=== PATIENT | female | born 2000 | race Caucasian/White ===

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

== ENCOUNTER 2020-04-07 09:26 | Emergency (ER) | payer SELFPAY ==
[~2020-04-07] VITALS: Ht 167.6 cm; Wt 80.5 kg
[~2020-04-07 09:26] MED LIST changes: +CEPH500T PO; +MAGN296S68 PO; +ONDA4TAB10 SL
[2020-04-07 09:33] VITALS: BP 116/77
[2020-04-07 10:31] LABS: BILIRUBIN,URINE SMALL (NEG); CLARITY,URINE CLOUDY; COLOR,URINE YELLOW; NITRITE,URINE NEGATIVE (NEG); PROTEIN,URINE NEGATIVE (NEG-TRACE)
[2020-04-07 10:38] LABS: BACTERIA,URINE MODERATE /HPF (0-FEW); WBC,URINE >40 /HPF (0-4)
[2020-04-07 10:39] LABS: RBC,URINE OCC /HPF (0-2)
[2020-04-07] MEDS ORDERED: METR500T PO (11:25)
[2020-04-07] MEDS ORDERED: CEPH-264 PO (11:25)
--- NOTE | 2020-04-07 11:25 | PHYS DOC ---
Past Medical History Past Medical History: IBS, Other Additional Past Medical Histor: Enlarged spleen-not checked recently. Past Surgical History: No Surgical History Smoking Status: Never Smoker Alcohol Use: None Drug Use: None General Adult EDM: Chief Complaint: SEXUALLY TRANSMITTED DISEASE HPI: HPI: Patient is a 19 year old [f__sex] who presents with [] Review of Systems: Review of Systems: Constitutional: Denies fever or chills. [] Eyes: Denies change in visual acuity. [] HENT: Denies nasal congestion or sore throat. [] Respiratory: Denies cough or shortness of breath. [] Cardiovascular: Denies chest pain or edema. [] GI: Denies abdominal pain, nausea, vomiting, bloody stools or diarrhea. [] : Denies dysuria. [] Musculoskeletal: Denies back pain or joint pain. [] Integument: Denies rash. [] Neurologic: Denies headache, focal weakness or sensory changes. [] Endocrine: Denies polyuria or polydipsia. [] Lymphatic: Denies swollen glands. [] Psychiatric: Denies depression or anxiety. [] Heart Score: Risk Factors: Risk Factors: DM, Current or recent (<one month) smoker, HTN, HLP, family history of CAD, obesity. Risk Scores: Score 0 - 3: 2.5% MACE over next 6 weeks - Discharge Home Score 4 - 6: 20.3% MACE over next 6 weeks - Admit for Clinical Observation Score 7 - 10: 72.7% MACE over next 6 weeks - Early Invasive Strategies Allergies: Allergies: Allergies Coded Allergies Type Severity Reaction Last Updated Verified No Known Drug Allergies 07/21/17 No Physical Exam: PE: Constitutional: Well developed, well nourished, no acute distress, non-toxic appearance. [] HENT: Normocephalic, atraumatic, bilateral external ears normal, oropharynx moist, no oral exudates, nose normal. [] Eyes: PERRLA, EOMI, conjunctiva normal, no discharge. [] Neck: Normal range of motion, no tenderness, supple, no stridor. [] Cardiovascular:Heart rate regular rhythm, no murmur [] Lungs & Thorax: Bilateral breath sounds clear to auscultation [] Abdomen: Bowel sounds normal, soft, no tenderness, no masses, no pulsatile masses. [] Skin: Warm, dry, no erythema, no rash. [] Back: No tenderness, no CVA tenderness. [] Extremities: No tenderness, no cyanosis, no clubbing, ROM intact, no edema. [] Neurologic: Alert and oriented X 3, normal motor function, normal sensory function, no focal deficits noted. [] Psychologic: Affect normal, judgement normal, mood normal. [] Current Patient Data: Labs: Laboratory Tests Test 04/07/20 10:19 04/07/20 10:22 Urine Collection Type Unknown Urine Color Yellow Urine Clarity Cloudy Urine pH 6.0 (<5.0-8.0) Urine Specific Addison 1.025 (1.000-1.030) Urine Protein Negative mg/dL (NEG-TRACE) Urine Glucose (UA) Negative mg/dL (NEG) Urine Ketones (Stick) Negative mg/dL (NEG) Urine Blood Negative (NEG) Urine Nitrite Negative (NEG) Urine Bilirubin Small (NEG) Urine Urobilinogen Dipstick 1.0 mg/dL (0.2 mg/dL) Urine Leukocyte Esterase Large (NEG) Urine RBC Occ /HPF (0-2) Urine WBC >40 /HPF (0-4) Urine Squamous Epithelial Cells Mod /LPF Urine Bacteria Moderate /HPF (0-FEW) Urine Mucus Slight /LPF POC Urine HCG, Qualitative Hcg negative (Negative) Microbiology 04/07/20 Wet Prep - Final, Complete Vital Signs: Vital Signs Date Time Temp Pulse Resp B/P (MAP) Pulse Ox O2 Delivery O2 Flow Rate FiO2 04/07/20 09:33 97.6 86 15 116/77 (90) 98 Room Air 97.6 EKG: EKG: [] Radiology/Procedures: Radiology/Procedures: [] Course & Med Decision Making: Course & Med Decision Making Pertinent Labs and Imaging studies reviewed. (See chart for details) [] Dragon Disclaimer: Dragon Disclaimer: This electronic medical record was generated, in whole or in part, using a voice recognition dictation system. Departure Departure Impression: Primary Impression: Trichomonas vaginitis Additional Impressions: Urinary tract infection Qualified Codes: N30.00 - Acute cystitis without hematuria Concern about sexually transmitted disease in female without diagnosis Disposition: 01 DC HOME SELF CARE/HOMELESS Condition: STABLE Referrals: NO PCP (PCP) SAGE STEVENSON Jr, MD Patient Instructions: Sexually Transmitted Disease, [id number], Trichomoniasis, Urinary Tract Infection, [id number] Scripts Metronidazole (FLAGYL) 500 Mg Tablet 500 MG PO BID for 7 Days, #14 TAB Prov: CARLOTA TADEO DO 04/07/20 Cephalexin (KEFLEX) 500 Mg Capsule 1 CAP PO TID for 7 Days, #21 CAP 0 Refills Prov: CARLOTA TADEO DO 04/07/20 CARLOTA TADEO DO Apr 07, 2020 11:25
[2020-04-07] MEDS ORDERED: cefTRIAXone IM 250 MG VIAL IM ONE (11:30)
[2020-04-07] MEDS ORDERED: AZITHROMYCIN 250 MG TABLET. PO ONE (11:30)
== END 2020-04-07 11:39 | disposition home or self-care (01) ==
LOC: ER 09:26
DX: A59.01 Trichomonal vulvovaginitis (principal); N30.00 Acute cystitis without hematuria
CPT/HCPCS: 81001; 81025; 87086; 87491; 87591; 96372; 99284; J0696; Q0111; 87077

== ENCOUNTER 2020-08-12 14:10 | Emergency (ER) | payer SELFPAY ==
[~2020-08-12] VITALS: Ht 165.1 cm; Wt 80.0 kg
[~2020-08-12 14:10] MED LIST changes: +CEPH-264 PO; +METR500T PO
[2020-08-12 14:15] VITALS: BP 118/79
[2020-08-12 16:10] LABS: BILIRUBIN,URINE NEGATIVE (NEG); CLARITY,URINE CLEAR; COLOR,URINE YELLOW; NITRITE,URINE NEGATIVE (NEG); PH,URINE 6.5 (<5.0-8.0); PROTEIN,URINE NEGATIVE (NEG-TRACE); UROBILINOGEN,URINE 0.2 mg/dL (0.2 mg/dL)
[2020-08-12 16:24] LABS: BACTERIA,URINE MODERATE /HPF (0-FEW)
--- NOTE | 2020-08-12 16:27 | RAD ---
EXAM: 2 VIEW ABDOMEN WITH ONE VIEW CHEST. HISTORY: Abdominal pain and nausea. COMPARISON: 07/21/2017. FINDINGS: A frontal view of the chest and supine/upright views of the abdomen are obtained. There are no confluent infiltrates. There is no pneumothorax or pleural effusion. The heart is not en larged. There is no pneumoperitoneum. There are no distended small bowel loops or significant air-fluid level s. There is gas distally. IMPRESSION: 1. No confluent infiltrates. 2. No evidence of obstruction. Electronically signed by: Evie Hamm MD (08/12/2020 4:24 PM) [facility]
[2020-08-12 16:32] LABS: BASO # 0.1 x10^3/uL (0.0-0.2); BASO % 1 % (0-3); EOS % 1 % (0-3); HEMATOCRIT 42.9 % (36.0-47.0); HEMOGLOBIN 14.5 g/dL (12.0-15.5); LYMPH # 1.7 x10^3/uL (1.0-4.8); LYMPH % 20 % (24-48); MEAN CORPUSCULAR HEMOGLOBIN 32 pg (25-35); MEAN CORPUSCULAR HGB CONC 34 g/dL (31-37); MEAN CORPUSCULAR VOLUME 95 fL (79-100); MONO # 0.5 x10^3/uL (0.0-1.1); MONO % 6 % (0-9); NEUT # 6.4 x10^3/uL (1.8-7.7); NEUT % 74 % (31-73); PLATELET COUNT 176 x10^3/uL (140-400); RED CELL DISTRIBUTION WIDTH 12.6 % (11.5-14.5); WHITE BLOOD COUNT 8.6 x10^3/uL (4.0-11.0)
[2020-08-12 16:39] LABS: CREATININE 0.8 mg/dL (0.6-1.0); GFR 92.4; POTASSIUM 3.8 mmol/L (3.5-5.1)
[2020-08-12 16:44] LABS: ALBUMIN 4.2 g/dL (3.4-5.0); ALBUMIN/GLOBULIN RATIO 1.4 (1.0-1.7); TOTAL BILIRUBIN 0.5 mg/dL (0.2-1.0); TOTAL PROTEIN 7.1 g/dL (6.4-8.2)
--- NOTE | 2020-08-12 17:25 | PHYS DOC ---
Past Medical History Past Medical History: IBS, Other Additional Past Medical Histor: Enlarged spleen-not checked recently. (PATRICK GARCIA CERTIFIED MEDICAL CODER) Past Surgical History: No Surgical History (PATRICK GARCIA CERTIFIED MEDICAL CODER) Smoking Status: Never Smoker Alcohol Use: None Drug Use: None (PATRICK GARCIA APRN) General Adult EDM: Chief Complaint: PELVIC PAIN HPI: HPI: Patient is a 19 year old female who presents with yesterday was seen at [facility] by the [facility] for her abdominal pain. She states that nothing was fine except for some constipation. Patient comes in today because she states that she thinks something is wrong. Patient has a history of IBS and asthma. Patient states she has been having a bowel movement that is normal for her and is not hard to pass. Patient denies fever, back pain, nausea, vomiting, diarrhea, pain, cough, shortness of breath, sexually-transmitted disease concerns, abnormal vaginal discharge or bleeding. She states that she has no burning with urination but feels like she is not frequency or pressure in her lower abdomen. She rates her nonradiating pressure discomfort at a 5 out of 10. (PATRICK GARCIA CERTIFIED MEDICAL CODER) Review of Systems: Review of Systems: Constitutional: Denies fever or chills. [] Eyes: Denies change in visual acuity. [] HENT: Denies nasal congestion or sore throat. [] Respiratory: Denies cough or shortness of breath. [] Cardiovascular: Denies chest pain or edema. [] GI: + abdominal pressure pain, denies nausea, vomiting, bloody stools or diarrhea. [] : Denies dysuria. [] Musculoskeletal: Denies back pain or joint pain. [] Integument: Denies rash. [] Neurologic: Denies headache, focal weakness or sensory changes. [] Endocrine: Denies polyuria or polydipsia. [] Lymphatic: Denies swollen glands. [] Psychiatric: Denies depression or anxiety. [] (PATRICK GARCIA CERTIFIED MEDICAL CODER) Heart Score: C/O Chest Pain: No Risk Factors: Risk Factors: DM, Current or recent (<one month) smoker, HTN, HLP, family history of CAD, obesity. Risk Scores: Score 0 - 3: 2.5% MACE over next 6 weeks - Discharge Home Score 4 - 6: 20.3% MACE over next 6 weeks - Admit for Clinical Observation Score 7 - 10: 72.7% MACE over next 6 weeks - Early Invasive Strategies (PATRICK GARCIA APRN) Allergies: Allergies: Allergies Coded Allergies Type Severity Reaction Last Updated Verified No Known Drug Allergies 07/21/17 No (PATRICK GARCIA APRN) Physical Exam: PE: Constitutional: Well developed, well nourished, no acute distress, non-toxic appearance. [] HENT: Normocephalic, atraumatic, bilateral external ears normal, oropharynx moist, no oral exudates, nose normal. [] Eyes: PERRLA, EOMI, conjunctiva normal, no discharge. [] Neck: Normal range of motion, no tenderness, supple, no stridor. [] Cardiovascular:Heart rate regular rhythm, no murmur [] Lungs & Thorax: Bilateral breath sounds clear to auscultation [] Abdomen: Bowel sounds normal, soft, no tenderness, no masses, no pulsatile masses. [] Skin: Warm, dry, no erythema, no rash. [] Back: No tenderness, no CVA tenderness. [] Extremities: No tenderness, no cyanosis, no clubbing, ROM intact, no edema. [] Neurologic: Alert and oriented X 3, normal motor function, normal sensory function, no focal deficits noted. [] Psychologic: Affect normal, judgement normal, mood normal. Normal physical exam [] (PATRICK GARCIA APRN) Current Patient Data: Labs: Laboratory Tests Test 08/12/20 14:15 08/12/20 14:24 08/12/20 16:15 Urine Collection Type Void Urine Color Yellow Urine Clarity Clear Urine pH 6.5 (<5.0-8.0) Urine Specific Amorita 1.015 (1.000-1.030) Urine Protein Negative mg/dL (NEG-TRACE) Urine Glucose (UA) Negative mg/dL (NEG) Urine Ketones (Stick) Negative mg/dL (NEG) Urine Blood Negative (NEG) Urine Nitrite Negative (NEG) Urine Bilirubin Negative (NEG) Urine Urobilinogen Dipstick 0.2 mg/dL (0.2 mg/dL) Urine Leukocyte Esterase Small (NEG) Urine RBC 1-2 /HPF (0-2) Urine WBC 11-20 /HPF (0-4) Urine Squamous Epithelial Cells Many /LPF Urine Bacteria Moderate /HPF (0-FEW) Urine Mucus Slight /LPF POC Urine HCG, Qualitative Hcg negative (Negative) White Blood Count 8.6 x10^3/uL (4.0-11.0) Red Blood Count 4.50 x10^6/uL (3.50-5.40) Hemoglobin 14.5 g/dL (12.0-15.5) Hematocrit 42.9 % (36.0-47.0) Mean Corpuscular Volume 95 fL (79-100) Mean Corpuscular Hemoglobin 32 pg (25-35) Mean Corpuscular Hemoglobin Concent 34 g/dL (31-37) Red Cell Distribution Width 12.6 % (11.5-14.5) Platelet Count 176 x10^3/uL (140-400) Neutrophils (%) (Auto) 74 % (31-73) H Lymphocytes (%) (Auto) 20 % (24-48) L Monocytes (%) (Auto) 6 % (0-9) Eosinophils (%) (Auto) 1 % (0-3) Basophils (%) (Auto) 1 % (0-3) Neutrophils # (Auto) 6.4 x10^3/uL (1.8-7.7) Lymphocytes # (Auto) 1.7 x10^3/uL (1.0-4.8) Monocytes # (Auto) 0.5 x10^3/uL (0.0-1.1) Eosinophils # (Auto) 0.0 x10^3/uL (0.0-0.7) Basophils # (Auto) 0.1 x10^3/uL (0.0-0.2) Sodium Level 144 mmol/L (136-145) Potassium Level 3.8 mmol/L (3.5-5.1) Chloride Level 106 mmol/L (98-107) Carbon Dioxide Level 27 mmol/L (21-32) Anion Gap 11 (6-14) Blood Urea Nitrogen 11 mg/dL (7-20) Creatinine 0.8 mg/dL (0.6-1.0) Estimated GFR (Cockcroft-Gault) 92.4 BUN/Creatinine Ratio 14 (6-20) Glucose Level 110 mg/dL (70-99) H Calcium Level 9.0 mg/dL (8.5-10.1) Total Bilirubin 0.5 mg/dL (0.2-1.0) Aspartate Amino Transferase (AST) 15 U/L (15-37) Alanine Aminotransferase (ALT) 25 U/L (14-59) Alkaline Phosphatase 83 U/L (46-116) Total Protein 7.1 g/dL (6.4-8.2) Albumin 4.2 g/dL (3.4-5.0) Albumin/Globulin Ratio 1.4 (1.0-1.7) Laboratory Tests 08/12/20 16:15 Laboratory Tests 08/12/20 16:15 Microbiology 08/12/20 Wet Prep - Final, Complete Vital Signs: Vital Signs Date Time Temp Pulse Resp B/P (MAP) Pulse Ox O2 Delivery O2 Flow Rate FiO2 08/12/20 14:15 98.0 82 16 118/79 (92) 99 Room Air 98.0 (PATRICK GARCIA APRN) EKG: EKG: [] (PATRICK GARCIA APRN) Radiology/Procedures: Radiology/Procedures: [] Impression: [facility] [address] [place] [address] IMAGING REPORT Signed PATIENT: TIP BUI ACCOUNT: [id number] : 2000 LOCATION: ER AGE: 19 SEX: F EXAM STATUS: REG ER ORD. PHYSICIAN: PATRICK GARCIA APRN REASON: PAIN, NAUSEA PROCEDURE: ACUTE ABDOMEN SERIES EXAM: 2 VIEW ABDOMEN WITH ONE VIEW CHEST. HISTORY: Abdominal pain and nausea. COMPARISON: 07/21/2017. FINDINGS: A frontal view of the chest and supine/upright views of the abdomen are obtained. There are no confluent infiltrates. There is no pneumothorax or pleural effusion. The heart is not enlarged. There is no pneumoperitoneum. There are no distended small bowel loops or significant air-fluid levels. There is gas distally. IMPRESSION: 1. No confluent infiltrates. 2. No evidence of obstruction. Electronically signed by: Evie Hamm MD (08/12/2020 4:24 PM) [facility] DICTATED and SIGNED BY: SIMEON HAMM MD DATE: 08/12/20 [id number] [facility] [address] [place] [address] IMAGING REPORT Signed PATIENT: TIP BUI ACCOUNT: [id number] : 2000 LOCATION: ER AGE: 19 SEX: F EXAM STATUS: REG ER ORD. PHYSICIAN: PATRICK GARCIA APRN REASON: PELVIC PAIN PROCEDURE: PELVIS W/TV Transabdominal and transvaginal sonography of the pelvis Clinical indications: Pelvic pain Transabdominal sonography: The uterus is anteverted in position. The longitudinal and AP and transverse dimensions are 6.8 cm and 3.0 cm and 4.0 cm respectively. The endometrial canal is poorly visualized. Therefore, transvaginal sonography will be performed. No uterine mass is seen. Neither ovary is visualized. No adnexal mass or free fluid is evident. Transvaginal sonography: The endometrial canal measures 6 mm in thickness which is normal. No hyperemia of the endometrial canal is seen. No uterine fibroid or mass is seen. No free fluid is seen within the cul-de-sac. The right ovary measures 1.5 cm and 2.7 cm and 1.7 cm in size and contains a normal follicular cyst measuring 7 mm. Color Doppler flow is seen within the right ovary. The left ovary measures 2.8 cm and 1.2 cm and 1.2 cm in size and is normal. Color Doppler flow is seen within the left ovary. No adnexal mass or free fluid is seen. IMPRESSION: Normal study. If there is a positive test, ectopic pregna ncy cannot be excluded at this point in time. Correlation with serial quantitative beta-hCG studies would be needed. Electronically signed by: Juan Reed MD (08/12/2020 5:38 PM) [id number] DICTATED and SIGNED BY: JUAN REED MD DATE: 08/12/20 [id number] 0 (PATRICK GARCIA APRN) Course & Med Decision Making: Course & Med Decision Making Pertinent Labs and Imaging studies reviewed. (See chart for details) See HPI. Abdomen is soft and nontender. No guarding. No rebound tenderness. Speaks in full complete sentences. Ambulatory with a steady gait. Skin pink warm and dry. Afebrile. No CVA tenderness. Ambulatory with a steady gait. I did get the [facility] report from her visit yesterday along with her CT scan. The CT scan from yesterday she stated no acute findings. Her lab work along wi th today's lab work shows no acute findings. Urinalysis does show slight urinary tract infection. I will go ahead and treat her for that. The CT from yesterday did show a moderate burden of stool. I will recommend that she take a stool softener. Patient was checked for sexually transmitted diseases today but states she did not want to be treated and would wait the 48 hours to see if she comes back positive for anything. Microbiology wet prep showed no acute findings. Ultrasound shows no acute findings. hCG test is negative. Acute abdominal series shows no acute findings. Blood work is unremarkable. 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 (PATRICK GARCIA APRN) Departure Departure Impression: Primary Impression: Urinary tract infection Qualified Codes: N39.0 - Urinary tract infection, site not specified Additional Impression: Concern about sexually transmitted disease in female without diagnosis Disposition: HOME / SELF CARE / HOMELESS Condition: STABLE Referrals: NO PCP (PCP) Patient Instructions: Urinary Tract Infection Additional Instructions: Follow up with your primary care provider. Take medication as prescribed and with food. Drink plenty of fluids. If anything worsens return to emergency room. Scripts Cephalexin (CEPHALEXIN) 500 Mg Capsule 1 CAP PO BID for 7 Days, #14 CAP Prov: PATRICK GARCIA APRN 08/12/20 Sennosides/Docusate Sodium (SENNA PLUS TABLET) 1 Each Tablet 2 TAB PO QHS for 14 Days, #28 TAB 0 Refills Prov: PATRICK GARCIA APRN 08/12/20 Attending Signature Attending Signature I have participated in the care of this patient and I have reviewed and agree with all pertinent clinical information above including history, exam, and recommendations. (CALEB BERGER MD) PATRICK GARCIA CERTIFIED MEDICAL CODER Aug 12, 2020 17:25 CALEB BERGER MD Aug 14, 2020 07:16
--- NOTE | 2020-08-12 17:41 | RAD ---
Transabdominal and transvaginal sonography of the pelvis Clinical indications: Pelvic pain Transabdominal sonography: The uterus is anteverted in position. The longitudinal and AP and transver se dimensions are 6.8 cm and 3.0 cm and 4.0 cm respectively. The endometrial canal is poorly visualiz ed. Therefore, transvaginal sonography will be performed. No uterine mass is seen. Neither ovary is v isualized. No adnexal mass or free fluid is evident. Transvaginal sonography: The endometrial canal measures 6 mm in thickness which is normal. No hyperem ia of the endometrial canal is seen. No uterine fibroid or mass is seen. No free fluid is seen within the cul-de-sac. The right ovary measures 1.5 cm and 2.7 cm and 1.7 cm in size and contains a normal follicular cyst measuring 7 mm. Color Doppler flow is seen within the right ovary. The left ovary jerrell sures 2.8 cm and 1.2 cm and 1.2 cm in size and is normal. Color Doppler flow is seen within the left ovary. No adnexal mass or free fluid is seen. IMPRESSION: Normal study. If there is a positive test, ectopic cannot be excluded at this point in time. Correlation with serial quantitative beta-hCG studies would be needed. Electronically signed by: Heron Reed MD (08/12/2020 5:38 PM) [id number]
[2020-08-12] MEDS ORDERED: SENN1TAB62 PO (17:47)
[2020-08-12] MEDS ORDERED: CEPH500C PO (17:47)
[2020-08-14 17:16] LABS: GC PROBE Negative (Negative)
== END 2020-08-12 17:40 | disposition home or self-care (01) ==
LOC: ER 14:10
DX: N39.0 Urinary tract infection, site not specified (principal); R10.9 Unspecified abdominal pain; J45.909 Unspecified asthma, uncomplicated
CPT/HCPCS: 36415; 74022; 76830; 76856; 80053; 81001; 81025; 85025; 87086; 87491; 87591; 99285; Q0111